=== PATIENT | female | born 1940 | race Caucasian/White ===

== ENCOUNTER 2020-08-28 07:20 | Inpatient (IN) ==
--- NOTE | 2020-07-31 12:21 | PAT Medication Instructions ---
Medication Instructions Date of Service July 31, 2020 Home Medications apremilast 30 mg tablet 30 mg PO BID diclofenac sodium 1 % topical gel 2 g TOPICAL QID PRN levothyroxine 112 mcg tablet 112 mcg PO QAM midodrine 5 mg tablet 5 mg PO BID triamcinolone acetonide 0.1 % topical cream 1 applic TOPICAL DAILY ascorbic acid (vitamin C) [Vitamin C] 1 g PO QDL calcium carbonate [Calcium 600] 600 mg PO QDL cholecalciferol (vitamin D3) [Vitamin D3] 50 mcg PO QDL melatonin 5 mg PO HS PRN omega-3 fatty acids [Fish Oil] 1,000 mg PO QDL Continue as directed diclofenac sodium 1 % topical gel 2 g TOPICAL QID PRN * triamcinolone acetonide 0.1 % topical cream 1 applic TOPICAL DAILY * *OK to continue, but do not use near the surgical site within 24 hours of surgery. ASK your prescriber and surgeon apremilast 30 mg tablet 30 mg PO BID STOP taking 2 weeks before surgery If surgery is within 2 weeks, stop taking as soon as possible. omega-3 fatty acids [Fish Oil] 1,000 mg PO QDL DO NOT take the morning of surgery ascorbic acid (vitamin C) [Vitamin C] 1 g PO QDL calcium carbonate [Calcium 600] 600 mg PO QDL cholecalciferol (vitamin D3) [Vitamin D3] 50 mcg PO QDL Take morning of surgery With a small sip of water, OTHERWISE NOTHING TO EAT OR DRINK AFTER MIDNIGHT: levothyroxine 112 mcg tablet 112 mcg PO QAM midodrine 5 mg tablet 5 mg PO BID Take evening before surgery midodrine 5 mg tablet 5 mg PO BID melatonin 5 mg PO HS PRN Other Notes If you have any questions please call us at [phone] or [phone] or [phone] or [phone]
--- NOTE | 2020-08-05 12:29 | Anesthesiology Consultation ---
Date of Service August 05, 2020 Assessment & Plan (1) Encounter for pre-operative examination: Per assessment on 08/05: Travel screen negative. No known COVID-19 positive conta cts or current COVID-19 related symptoms. Patient already had COVID vaccine #1 (scheduled for second COVID vaccine 08/15). Surgeon arranging preop COVID testing. Awaiting results. Chart Review Chart Review: Acceptable Risk for Surgery (pending most recent cardiology office visit) and Patient seen in Pre Admission Testing Teaching & Discussion Pre-Anesthesia Teaching/Discussion Notes: Instructed NPO after midnight before surgery,except medications with 15 cc of water. Medication instructions provide d according to the PAT guidelines. History Surgery Operation Date: 08/28/20 11:00 Proposed Procedures p Right Total Shoulder Arthroplasty [place] - Aubrey Cadena DO Height/Weight Height: 5 ft 2 in Weight: 72 kg Allergies Allergy/AdvReac Type Severity Reaction Status Date / Time Sulfa (Sulfonamide Allergy Unknown Rash Verified 08/05/20 12:35 Antibiotics) valdecoxib [From Bextra] Allergy Rash Verified 08/05/20 12:40 oxycodone AdvReac Mild N/V Verified 08/05/20 12:40 Medications Home Medications Medication Instructions Recorded Confirmed Last Taken apremilast 30 mg tablet 30 mg PO BID 06/17/20 07/27/20 Unknown diclofenac sodium 1 % topical gel 2 g TOPICAL QID PRN 06/17/20 07/27/20 Unknown levothyroxine 112 mcg tablet 112 mcg PO QAM 06/17/20 07/27/20 Unknown midodrine 5 mg tablet 5 mg PO BID 06/17/20 07/27/20 Unknown triamcinolone acetonide 0.1 % 1 applic TOPICAL DAILY 06/17/20 07/27/20 Unknown topical cream ascorbic acid (vitamin C) [Vitamin 1 g PO QDL 07/27/20 07/27/20 Unknown C] calcium carbonate [Calcium 600] 600 mg PO QDL 07/27/20 07/27/20 Unknown cholecalciferol (vitamin D3) 50 mcg PO QDL 07/27/20 07/27/20 Unknown [Vitamin D3] melatonin 5 mg PO HS PRN 07/27/20 07/27/20 Unknown omega-3 fatty acids [Fish Oil] 1,000 mg PO QDL 07/27/20 07/27/20 Unknown Past Medical History Medical History Bradycardia GERD (gastroesophageal reflux disease) Hypotension pt states BP range typically 120s/70s on Midodrine* Hypothyroidism Large hiatal hernia Per CXR Osteoarthritis Psoriasis Vasovagal syncope 03/2020 ([facility]) > no further episodes since Exercise / Class Metabolic Activity II 4-5 Yardwork/Stairs/Walk up hill (one flight of stairs (no chest pain, no SOB)) Past Family History Family History Father Diabetes Brother Colon cancer Brother Colon cancer Aunt Liver cancer Grandfather (Maternal) Colon cancer Aunt Vaginal cancer Other No family history of adverse response to anesthesia Past Surgical History Surgical History History of cataract surgery R/L History of cholecystectomy History of colonoscopy History of knee replacement procedure of left knee History of knee replacement procedure of right knee History of tonsillectomy and adenoidectomy Past Anesthesia History No Family Hx of Anesthesia Complications and Other Patient: Hx "slow to wake" (no known of reintubation) with previous knee replacement surgery 17+ years ago. Also, post-op hypotension (no significant issues > just needed further monitoring per pt) History of PONV No Hx of PONV and Hx of Motion Sickness Social History Smoking Status: Never smoker Do You Dip or Chew Tobacco: No Hx Alcohol Use: Yes alcohol intake frequency: holidays/special occasions only Hx Substance Use: No substance use type: does not use Review of Systems No snoring. Patient denies chest pain, shortness of breath, dyspnea on exertion, fever, chills, cough, wheezing, palpitations. Physical Exam Vital Signs VITALS BP 158/72 (advised to continue monitoring by patient/cardiology) P 61 TEMP 98.6 SP02 94%RA RESP 16 PHYSICAL Full neck and c-spine range of motion. Full TMJ range of motion. TMD 3 finger breaths Mallampati Score 3 Dentition: intact Lungs: clear throughout to auscultation Cardiac: regular rate and rhythm, II/ systolic murmur Spine: normal Carotid arteries: negative bruit Extremities: no edema Testing Laboratory Results 08/05/20 12:53 08/05/20 12:53 PT 10.0 Seconds (9.0-12.0) 08/05/20 12:53 INR 1.0 (0.9-1.1) 08/05/20 12:53 APTT 23.3 Seconds (21.0-31.0) 08/05/20 12:53 Blood Type A Positive 08/05/20 12:53 Antibody Screen NEGATIVE 08/05/20 12:53 Electrocardiogram Date: 04/01/20 Normal sinus rhythm at 83 bpm. Minimal voltage criteria for LVH, may be normal variant. Chest X-Ray Date: 04/01/20 Stable large hiatal hernia. Stable cardiomegaly without pulmonary vascular congestion. No effusion, consolidation, or pneumothorax. No acute findings seen.
[2020-08-05 13:29] LABS: Basophils # (auto) 0.03 K/uL (0-0.2); Basophils % (auto) 0.6 %; Eosinophils # (auto) 0.07 K/uL (0-0.5); Eosinophils % (auto) 1.4 %; Hematocrit (blood only) 36.1 % (37-47); Hemoglobin 12.6 g/dL (12.0-16.0); Immature Granulocytes # (auto) 0.01 K/uL (0.00-0.02); Immature Granulocytes % (auto) 0.2 %; Lymphocytes # (auto) 1.44 K/uL (1.2-3.4); Lymphocytes % (auto) 29.1 %; Mean Corpuscular Hemoglobin 31.6 pg (25-34); Mean Corpuscular Hgb Conc 34.9 g/dL (32-36); Mean Corpuscular Volume 90.5 fL (80-100); Mean Platelet Volume 10.8 fL (7.4-10.4); Monocytes # (auto) 0.45 K/uL (0.11-0.59); Monocytes % (auto) 9.1 %; Neutrophils # (auto) 2.95 K/uL (1.4-6.5); Neutrophils % (auto) 59.6 %; Platelet Count 163 K/uL (130-400); RDW Coefficient of Variation 12.6 % (11.5-14.5); RDW Standard Deviation 41.6 fL (36.4-46.3); Red Blood Count 3.99 M/uL (4.2-5.4); White Blood Count 4.95 K/uL (4.8-10.8)
[2020-08-05 13:40] LABS: Partial Thromboplastin Ratio 0.9; Partial Thromboplastin Time 23.3 Seconds (21.0-31.0)
[2020-08-05 14:55] LABS: BUN Creatinine Ratio 23.4 (10-20); Calcium 9.6 mg/dl (8.5-10.1); Est GFR (African American) 72.9; Est GFR (Non-African American) 62.9; Potassium 4.4 mmol/L (3.5-5.1)
--- NOTE | 2020-08-27 08:06 | History & Physical Report ---
Date of Service August 27, 2020 Assessment & Plan (1) Right rotator cuff tear: We will proceed with a right reverse shoulder arthroplasty. Postoperatively she will be kept overnight in the hospital for postoperative medical management. She plans to use [facility] in [place] upon discharge. History of Present Illness Chief Complaint: Rotator cuff arthropathy of the right shoulder. Primary Care Provider: NO PCP is a pleasant 80-year-old female who is been dealing with a 4 to 5-year history of right shoulder pain. She initially injured it when she fell onto her shoulder. She has been caring for her during the timeframe and has been unable to do anything with the shoulder. MRI showed a massive chronic retracted rotator cuff tear. After failing conservative treatment, she has elected proceed with a right reverse shoulder arthroplasty.. Allergies Allergy/AdvReac Type Severity Reaction Status Date / Time Sulfa (Sulfonamide Allergy Unknown Rash Verified 08/05/20 12:35 Antibiotics) valdecoxib [From Bextra] Allergy Rash Verified 08/05/20 12:40 oxycodone AdvReac Mild N/V Verified 08/05/20 12:40 Home Medications Medication Instructions Recorded Confirmed Type apremilast 30 mg tablet 30 mg PO BID 06/17/20 07/27/20 History diclofenac sodium 1 % topical gel 2 g TOPICAL QID PRN 06/17/20 07/27/20 History levothyroxine 112 mcg tablet 112 mcg PO QAM 06/17/20 07/27/20 History midodrine 5 mg tablet 5 mg PO BID 06/17/20 07/27/20 History triamcinolone acetonide 0.1 % 1 applic TOPICAL DAILY 06/17/20 07/27/20 History topical cream ascorbic acid (vitamin C) [Vitamin 1 g PO QDL 07/27/20 07/27/20 History C] calcium carbonate [Calcium 600] 600 mg PO QDL 07/27/20 07/27/20 History cholecalciferol (vitamin D3) 50 mcg PO QDL 07/27/20 07/27/20 History [Vitamin D3] melatonin 5 mg PO HS PRN 07/27/20 07/27/20 History omega-3 fatty acids [Fish Oil] 1,000 mg PO QDL 07/27/20 07/27/20 History Past Med/Surg History Medical History Aortic stenosis Mild to moderate aortic stenosis per 04/2020 ECHO Bradycardia GERD (gastroesophageal reflux disease) Hypotension pt states BP range typically 120s/70s on Midodrine* Hypothyroidism Large hiatal hernia Per CXR Osteoarthritis Psoriasis Vasovagal syncope 03/2020 ([facility] [place] [facility]) > no further episodes since Surgical History History of cataract surgery R/L History of cholecystectomy History of colonoscopy History of knee replacement procedure of left knee History of knee replacement procedure of right knee History of tonsillectomy and adenoidectomy Family History Father Diabetes Brother Colon cancer Brother Colon cancer Aunt Liver cancer Grandfather (Maternal) Colon cancer Aunt Vaginal cancer Other No family history of adverse response to anesthesia Social History Smoking Status: Never smoker Second Hand Exposure: Yes ( was a smoker); Hx Alcohol Use: Yes Hx Substance Use: No Preferred Language: Syriac Communication Ability: Effective Hip Hop Dance Instructor Required: No Beliefs That Will Affect Care: Pentecostalism Pentecostalism Beliefs: Buddhism Current Living Situation: Alone Feels Safe at Home: Yes Assistive Devices: Glasses Review of Systems All systems reviewed & are unremarkable except as noted in HPI & below. Physical Exam On physical examination of the right shoulder, she has about 150 degrees of forward elevation, 40 degrees of external rotation and internal rotation L5. She has a mildly positive belly press test.. Constitutional WD/WN, vitals as above Eyes PERRL, conjunctivae normal, anicteric sclerae ENMT external ear and nose normal, oropharynx normal Neck trachea midline, no thyromegaly Respiratory normal respiratory effort Cardiovascular RRR, no murmur, no edema Gastrointestinal (Abdomen) normal bowel sounds, soft, nontender, no hepatosplenomegaly Psychiatric A+Ox3, euthymic affect Results & Data Results & Data Laboratory Results . Diagnostic Findings X-rays of the right shoulder show mild osteoarthritis. The humeral head still located within the glenoid.. PG Care Time/CCT Total # of Minutes Spent Total Time Spent with Patient: Total time spent is greater than 50% in coordination of care (as documented) at patient's floor/unit and/or counseling patient: Coding Level of Care Code None Diagnoses Right rotator cuff tear M75.101
[~2020-08-28 07:20] MED LIST: ACETAMINOPHEN 500 MG TAB PO SCH; BUPIVACAINE 0.5 % 5 MG/1 ML PF 10ML VIAL ONE; LIDOCAINE HCL 2% 2 ML VIAL/AMP(20MG/ML) INFIL ONE; LR 15ML/HR IV SCH; LR 60ML/HR IV SCH; ONDANSETRON INJ 2 MG/ML 2 ML VIAL ONE; PROPOFOL IV EMULSION 10 MG/ML 20 ML VIAL IV ONE; ROPIVACAINE 0.5% HCL/PF 150 MG, BUPIVACAINE 0.75% MPF 20 ML, EPINEPHrine 30MG/30ML (OR ... INFIL SCH; ROPIVACAINE 0.5% HCL/PF 150 MG, BUPIVACAINE 0.75% MPF 20 ML, EPINEPHrine 30MG/30ML (OR ... INSTIL SCH; ceFAZolin 1000MG 1,000 MG/7.5 ML SYR IV SCH; dexAMETHasone 4 MG TAB PO SCH; fentaNYL citrate 100 MCG/2 ML VIAL ONE
[2020-08-28] MEDS ORDERED: MIDAZOLAM HCL 1 MG/ML 2ML VIAL ONE (07:21)
--- NOTE | 2020-08-28 08:06 | History & Physical Bridge Note ---
Date of Service August 28, 2020 History & Physical Bridge Note I have examined the patient, reviewed the History & Physical and in the interval since the performance of the History & Physical I have noted the following changes of clinical significance: no changes noted
[2020-08-28] MEDS ORDERED: ORTHO JOINT ANESTHETIC ONE (08:31)
[2020-08-28] MEDS ORDERED: ONDANSETRON INJ 2 MG/ML 2 ML VIAL IV PRN ×2 (08:40→11:56)
[2020-08-28] MEDS ORDERED: fentaNYL citrate 100 MCG/2 ML VIAL IV PRN (08:40)
[2020-08-28] MEDS ORDERED: ATROPINE SULFATE 0.1 MG/ML 10ML SYR IV PRN (08:40)
[2020-08-28] MEDS ORDERED: HYDROmorphone INJ 1 MG/ML SYRINGE IV PRN (08:40)
[2020-08-28] MEDS ORDERED: ePHEDrine sulfate 50 MG/ML AMP IV PRN (08:40)
[2020-08-28] MEDS ORDERED: ePHEDrine sulfate 50 MG/ML SYR ONE (09:55)
[2020-08-28] MEDS ORDERED: PHENYLEPHRINE HCL 10 MG/ML VIAL ONE ×2 (09:55)
--- NOTE | 2020-08-28 10:35 | Operative Report ---
PG Post Operative Report Pre & Post Diagnosis Operation Date: 08/28/20 10:05 Pre-Op Diagnosis: Rotator cuff arthropathy of the right shoulder with tendinopathy of the long head of the biceps tendon Post-Op Diagnosis: Rotator cuff arthropathy of the right shoulder with tendinopathy of the long head of the biceps tendon I identified the patient and participated in the time-out.: Yes Procedure Operation Date: 08/28/20 10:05 Actual Procedures p Right Reverse Total Shoulder Arthroplasty--Uncemented with open biceps tenodesis as a distinct and separate procedure (modifier 59) (Right) - Aubrey Cadena, Surgeon Aubrey Cadena, Sole Painter Aubrey Pineda PAC Estimated Blood Loss 200 Findings Consistent with Post-Op Diagnosis Specimens Right humeral head Complications none Disposition Disposition: Recovery Room Indications is a pleasant 80-year-old female who is been having a 5-year history of right shoulder pain. She fell about 5 years ago. Unfortunate she was taking care of her who was very sick. Her shoulders gotten much worse. MRI and clinical examination were diagnostic for rotator cuff arthropathy of the right shoulder. After failing conservative treatment, she elected proceed with a right reverse shoulder arthroplasty. Description of Procedure A CPT code modifier 59: The long head of the biceps tendon was enlarged and inflamed consistent with tendinopathy. A tenodesis was opted. This was a separate and distinct portion of the procedure. For these reasons, a CPT code modifier 59 will be added to this case. Implants used: I used a [employer] Comprehensive reverse total shoulder arthroplasty system with a size 11 press fit micro humeral stem, a +3 offset humeral tray and a standard humeral bearing, a 25 mm small augment baseplate with a 6.5 mm central screw and superior and inferior locking screws, and a size 40 mm eccentric glenosphere. arrived at [facility] for the above procedure. She was seen in the preoperative holding area and the operative extremity was identified and signed. She was given a preoperative antibiotic, TXA, and an interscalene nerve block. She was taken back to the operating room, laid on table in supine position, and put under general anesthesia. She was then put into the beachchair position. The shoulder was then prepped and draped in sterile fashion. A timeout was done and the patient and the operative extremity was properly identified. A deltopectoral approach was used. Dissection was taken down through the fascia and the deltoid was retracted laterally and the conjoined tendon was retracted medially. The anterior shoulder was exposed. The biceps groove was opened up and the biceps tendon was examined extensively. The biceps tendon demonstrated enlargement and inflammatory changes consistent with longstanding inflammation in the context of osteoarthritis and cuff arthropathy. The long head of the biceps tendon was then tenodesed to the upper border of the pectoralis major. This was a separate and distinct portion of the procedure. The subscapularis was then directly released off the lesser tuberosity with a peel technique. The inferior capsule was released and the humeral head was dislocated. A canal finding reamer was sent down the center of the humeral canal. Sequential reaming up to a size 11 reamer was done. Off that reamer, a proximal humeral resection guide was placed. The proximal humerus was resected at 135 of inclination and 25 of retroversion. Osteophytes were then removed and the glenoid was exposed. Time was spent doing a complete capsular and labral release. The glenoid guide was then placed in the inferior aspect of the glenoid. A 3.2 mm Steinmann pin was then placed into the glenoid vault at 10 of inclination. The glenoid baseplate was then reamed. The final size 25 mm small augment baseplate was then impacted in the place. A 6.5 mm central screw was then placed followed by superior and inferior locking screws. A 40 mm eccentric glenosphere was then impacted into place. Surrounding soft tissues were then injected with 100 cc an orthopedic pain control cocktail. The proximal humerus was then exposed. Sequential broaching of the humerus up to a size 11 broach was done. Off that broach a +3 offset humeral tray was trialed. The shoulder was then reduced, brought through a full range of motion, and felt to be stable. The shoulder was then dislocated and the broach was removed. The final size 11 micro press-fit humeral stem was then impacted into place. A standard humeral bearing was then snapped onto a +3 offset humeral tray. The humeral tray was then impacted onto the humeral stem. The shoulder was once again reduced, brought through a full range of motion, and felt to be stable. The subscapularis was then tenodesed back to the lesser tuberosity with transosseous FiberWire sutures and side to side sutures with the arm in 45 of external rotation. A dilute betadyne lavage was then done for 3 minutes. The joint was then irrigated with normal saline solution. Hemostasis was obtained. The interval was closed with 2-0 Vicryl suture. The skin was then closed with 2-0 Vicryl and meg. A Silverlon dressing was placed and the arm was rested in a regular arm sling. She was then extubated and transferred to a hospital bed. She taken to the postanesthesia care unit in stable condition. She tolerated the procedure well. Aubrey Pineda PA-C, was present for the entire procedure. He was critical for patient positioning, prepping, draping, retraction exposure, wound closure and application of sterile dressing. I attest to the content of the Intraoperative Record and any orders documented therein. Any exceptions are noted below.
[2020-08-28] MEDS ORDERED: NALOXONE HCL 0.4 MG/1 ML VIAL/CARP IV PRN (11:56)
[2020-08-28] MEDS ORDERED: MAGNESIUM HYDROXIDE SUSP 30 ML UDC PO PRN (11:56)
[2020-08-28] MEDS ORDERED: SODIUM CHLORIDE 0.9% 1000ML 1,000 ML IV SCH (11:56)
[2020-08-28] MEDS ORDERED: HYDROmorphone INJ 0.5 MG/0.5 ML SYR IV PRN (11:56)
[2020-08-28] MEDS ORDERED: oxyCODONE HCL IR 5 MG TAB (IMMEDIATE RELEASE) PO PRN (11:56)
[2020-08-28] MEDS ORDERED: bisacodyL 10 MG SUPP PR PRN (11:56)
[2020-08-28] MEDS ORDERED: METOCLOPRAMIDE HCL INJ 5 MG/ML 2 ML VIAL IV PRN (11:56)
--- NOTE | 2020-08-28 11:59 | XRay Report ---
XR shoulder RT min 2V routine CLINICAL HISTORY: Post shoulder surgery COMPARISON STUDY: None. FINDINGS: Status post reverse right total shoulder arthroplasty. Hardware is intact. No fracture or d islocation. The skin meg are in place. Patchy right lower lobe airspace opacity is noted. Suspect a trace right pleural effusion. IMPRESSION: 1. Status post reverse right total shoulder arthroplasty. No evidence for hardware complications. 3. Patchy right basilar airspace opacity. This could represent atelectasis or pneumonia. ACT 112: Negative or not required by law. Electronically signed by: Lio Hopper M.D. 08/28/2020 11:57 AM
[2020-08-28] MEDS: KETOROLAC TROMETHAMINE 15 MG/ML VIAL IV SCH ×2 (12:59→18:18)
[2020-08-28] MEDS: ACETAMINOPHEN 500 MG TAB PO SCH ×2 (12:59→22:02)
--- NOTE | 2020-08-28 15:23 | Anesthesiology Progress Note ---
Date of Service August 28, 2020 Anesthesia Post Procedure Vital Signs Vital Signs: Temp Pulse Pulse Resp BP Pulse Ox 08/28/20 15:16 36.2 C L 53 L 16 104/65 95 08/28/20 14:10 36.3 C L 59 L 16 98/62 L 95 08/28/20 13:03 36.2 C L 64 16 99/64 L 94 08/28/20 12:31 36.3 C L 68 16 91/56 L 93 08/28/20 11:56 36.3 C L 64 16 124/66 92 08/28/20 11:32 58 L 16 118/65 97 08/28/20 11:20 36.5 C 60 16 123/64 98 08/28/20 11:10 58 L 14 124/59 L 98 08/28/20 11:00 36.1 C L 67 14 123/63 99 08/28/20 08:46 36.8 C 66 18 154/80 H 96 08/28/20 08:01 36.8 C 83 20 155/83 H 97 Pain Intensity Right Shoulder: Pain Intensity: 0 Transfer of Care Handoff Completed per policy Notes Mental Status: alert / awake / arousable and participated in evaluation Patient Amnestic to Procedure: Yes Nausea / Vomiting: adequately controlled Pain: adequately controlled Airway Patency, RR, SpO2: stable & adequate BP & HR: stable & adequate Hydration State: stable & adequate Anesthetic Complications: no major complications apparent and Pt Satisfied with anesthetic care
[2020-08-28] MEDS: ceFAZolin 2000MG 2,000 MG/15 ML SYR IV SCH (18:18)
[2020-08-28] MEDS: MIDODRINE HCL 2.5 MG TAB PO SCH (18:18)
[2020-08-28] MEDS: DOCUSATE SODIUM 100 MG CAP PO SCH (20:49)
[2020-08-28] MEDS ORDERED: SENNA 8.6 MG TAB PO SCH (21:00)
[2020-08-29] MEDS: KETOROLAC TROMETHAMINE 15 MG/ML VIAL IV SCH ×2 (01:19→06:32)
[2020-08-29] MEDS: ceFAZolin 2000MG 2,000 MG/15 ML SYR IV SCH (01:19)
[2020-08-29] MEDS ORDERED: LEVOTHYROXINE SODIUM 112 MCG TABLET PO SCH (06:30)
[2020-08-29] MEDS: ACETAMINOPHEN 500 MG TAB PO SCH (06:32)
[2020-08-29] MEDS ORDERED: dexAMETHasone 4 MG TAB PO SCH (08:00)
[2020-08-29] MEDS: MIDODRINE HCL 2.5 MG TAB PO SCH (08:22)
--- NOTE | 2020-08-29 08:28 | Orthopedic Progress Note ---
Date of Service August 29, 2020 Assessment & Plan (1) Status post reverse arthroplasty of right shoulder: Overall she is doing very well. She is not having any pain in the left shoulder. She will be seen by physical therapy today for ambulation and range of motion exercises. She can be discharged home later today. She will follow- up with orthopedics in 2 weeks. Tim Hernandez was seen and examined at bedside this morning. Overall she is doing very well. She does not have any pain in the right shoulder. She has been up and ambulating. She has no complaints.. Review of Systems All systems reviewed & are unremarkable except as noted in HPI & below. Physical Exam On physical examination of the right shoulder, she is wearing her sling as instructed. The dressing is clean and dry. Her radial, median, and ulnar nerves are checked and intact at her wrist. Her axillary nerve was not checked yet.. Results & Data Results & Data Laboratory Results . Diagnostic Findings Show the prosthesis to be in anatomic alignment without any evidence of fracture, dislocation, or loosening.. PG Care Time/CCT Total # of Minutes Spent Total Time Spent with Patient: Total time spent is greater than 50% in coordination of care (as documented) at patient's floor/unit and/or counseling patient: Coding Level of Care Code 11815 Post Operative Follow-Up Diagnoses Status post reverse arthroplasty of right shoulder Z96.611
[2020-08-29] MEDS: DOCUSATE SODIUM 100 MG CAP PO SCH (08:29)
--- NOTE | 2020-08-29 08:29 | Discharge Summary ---
Date of Service August 29, 2020 Admission HPI (Per Admitting) is a pleasant 80-year-old female who is been dealing with a 4 to 5-year history of right shoulder pain. She initially injured it when she fell onto her shoulder. She has been caring for her during the timeframe and has been unable to do anything with the shoulder. MRI showed a massive chronic retracted rotator cuff tear. After failing conservative treatment, she has elected proceed with a right reverse shoulder arthroplasty.. Admission Exam (Per Admitting) On physical examination of the right shoulder, she has about 150 degrees of forward elevation, 40 degrees of external rotation and internal rotation L5. She has a mildly positive belly press test.. Principal Diagnosis Same as "Discharge Diagnosis" noted below under Discharge Instructions. Discharge Exam On physical examination of the right shoulder, she is wearing her sling as instructed. The dressing is clean and dry. Her radial, median, and ulnar nerves are checked and intact at her wrist. Her axillary nerve was not checked yet.. Discharge Data Consultations 08/28/20 11:56 Consult Case Management - Discharge Planning Routine Procedures Performed Operation Date: 08/28/20 10:05 Actual Procedures p Right Reverse Total Shoulder Arthroplasty--Uncemented(Right) - Aubrey Cadena DO Ordered Studies 08/28/20 05:00 US - OR guided needle placemen Routine Hospital Course (1) Status post reverse arthroplasty of right shoulder: On August 28, 2020 arrived at [facility] and underwent a right reverse shoulder arthroplasty without complication. She had a general anesthetic and a right interscalene nerve block. Postoperatively she was placed in a sling and transferred to the general orthopedic floors. Her hospital course was uneventful. On postop day #1 her vital signs were stable and her pain was well controlled. She was able to participate well with physical therapy doing ambulation and range of motion exercises. She was then discharged to home. She will follow-up with orthopedics in 2 weeks. PG Care Time/CCT Total # of Minutes Spent Total Time Spent with Patient: Total time spent is greater than 50% in coordination of care (as documented) at patient's floor/unit and/or counseling patient: Discharge Plan Discharge Items Patient Disposition: Home - Home Health Services Reason For Visit: Degenerative Joint Disease Right Shoulder Discharge Diagnosis: Right reverse shoulder replacement Activity: As commented below Non-emergency contact: Surgeon Call non-emergency contact if: your wound has increased redness and your wound has increased drainage Follow-up/Referrals: Olaf Adame MD [Primary Care Provider] - Diet: Regular Addtl Attending Provider Instructions: Activity and Therapy Recommendations: * If you are using [facility] then therapy will be provided at your home until they feel you have accomplished all of your goals. * If you are using [facility] then Physical Therapy will be provided until they feel you are ready to start Outpatient Physical Therapy. * If you are not using home therapy then Outpatient Physical Therapy should start about 3-5 days from your day of surgery. Therapy will last about 8-12 weeks * Wear your sling for 3 weeks, unless otherwise instructed. You may remove your sling to shower and to dress, but otherwise, you should be in your sling at all times, including while sleeping * The shoulder replacement is very stable and you can use your hand while in the sling * You were shown a series of exercises in the hospital. Do these exercises daily including the exercises you were shown in physical therapy. Medications: * Narcotic You will likely be sent home from the hospital with a prescription for the narcotic pain medication that worked best throughout your stay. * Other medications may be prescribed for specific circumstances. If you have any questions, please call the office at . * Resume previous home medications unless otherwise instructed Dressing Care: Leave the Silverlon dressing in place for 7 days. After 7 days you may remove the dressing. If the incision is not draining then you may leave the meg open to air. If there is a little bit of drainage or if the meg are getting stuck on your clothing then cover the incision with a dry dressing. The meg will be removed at your 2 week follow-up appointment. Showering: You may shower with the Silverlon dressing in place. Do not let the shower spray hit the dressing directly. Pat the Silverlon dressing dry. If the dressing becomes wet underneath, then simply remove the dressing. Keep the incision dry until you are 7 days out from the day of surgery. After 7 days you may remove the Silverlon dressing and shower with the meg exposed. Let soapy water run over the meg and pat them dry. Do not scrub or soak the incision. Things To Watch For: * Drainage from the incision site that occurs more than one week after your surgery. * Increased redness at the incision site. * Fever above 102 degrees Fahrenheit. * Unusual chest pain or shortness of breath. * Call [facility] at with any of the above problems Follow-Up Visit: Follow-up with Dr. Cadena's PA (Aubrey Pineda) 2-3 weeks after your day of surgery. He will remove your meg and answer any questions. If you have any additional questions or concerns, Dr Cadena is usually in the office at the same time and will be available An appointment was probably scheduled when you signed-up for surgery in the office. If you have any questions call More detailed instructions as well as Frequently Asked Questions were provided in a folder by our office when you signed-up for surgery. Please review these instructions when you get home. If you have any further questions or concerns, please feel free to call the office at [phone] Pending Studies at Discharge: No Stand-Alone Forms: [facility], Smoking Cessation Medications and DC Order Prescriptions: New hydrocodone-acetaminophen 5-325 mg tablet 1 tab PO Q6H PRN (Reason: pain) Qty: 40 RF: 0 Continued levothyroxine [Synthroid] 112 mcg tablet 112 mcg PO QAM RF: 0 midodrine 5 mg tablet 5 mg PO BID RF: 0 diclofenac sodium [Voltaren] 1 % gel 2 g topical QID PRN (Reason: Pain) RF: 0 Otezla 30 mg tablet 30 mg PO BID RF: 0 triamcinolone acetonide 0.1 % cream 1 applic topical DAILY RF: 0 ascorbic acid (vitamin C) [Vitamin C] 1,000 mg Tablet 1 g PO QDL RF: 0 calcium carbonate [Calcium 600] 600 mg calcium (1,500 mg) Tablet 600 mg PO QDL RF: 0 Fish Oil Capsule 1,000 mg PO QDL RF: 0 cholecalciferol (vitamin D3) [Vitamin D3] 50 mcg (2,000 unit) Capsule 50 mcg PO QDL RF: 0 melatonin 5 mg Tablet 5 mg PO HS PRN (Reason: Sleep) RF: 0 Discharge Orders: Discharge Order (Routine); Ordered 08/29/20 Ordered By: Aubrey A Surinder Admission Data Admit Date/Time: 08/28/20 10:57 Attending Provider: Aubrey Cadena Admit Provider: Aubrey Cadena Primary Care Provider: Olaf Adame Other Providers: [facility]
[2020-08-29] MEDS ORDERED: TRIAMCINOLONE ACET 0.1% CR 15 GM TUBE TOP SCH (09:00)
[2020-08-29] MEDS ORDERED: MULTIVITAMIN TAB PO SCH (09:00)
== END 2020-08-29 11:34 | disposition home health service (06) | DRG 483 ==
LOC: ASU 07:20 → 3E 10:57